=== PATIENT | female | born 1980 | race Caucasian/White ===

== ENCOUNTER 2016-10-16 22:32 | Emergency (ER) | payer OTHER ==
[~2016-10-16] VITALS: Ht 160 cm; Wt 61.4 kg
[2016-10-16] MEDS ORDERED: SERT50TA12 PO (22:38)
[2016-10-16 22:45] VITALS: BP 119/74
[2016-10-16] MEDS ORDERED: IBUPROFEN 600 MG TABLET PO ONE (23:00)
[2016-10-16] MEDS ORDERED: AZITHROMYCIN 250 MG TABLET PO ONE (23:00)
== END 2016-10-16 23:30 | disposition home or self-care (01) ==
LOC: EMS 22:36
DX: J40 Bronchitis, not specified as acute or chronic (principal); M54.9 Dorsalgia, unspecified; F17.210 Nicotine dependence, cigarettes, uncomplicated
CPT/HCPCS: 99283; 99406